=== PATIENT | male | born 1940 | race Caucasian/White ===

== ENCOUNTER 2022-07-22 16:54 | Inpatient (IN) | payer MEDICARE, OTHER ==
[~2022-07-22] VITALS: Ht 177.8 cm; Wt 81.8 kg
[2022-07-22 17:35] LABS: Basophils # (auto) 0 10 ^3/uL (0-0.2); Basophils % (auto) 0.3 % (0.0-2.0); Eosinophils # (auto) 0 10 ^3/uL (0-0.8); Eosinophils % (auto) 0.1 % (0.0-7.0); Hematocrit 47.1 % (36.0-46.0); Hemoglobin 15.9 g/dL (12.2-16.2); Lymphocytes # (auto) 0.6 10 ^3/uL (0.4-5.4); Lymphocytes % (auto) 4.5 % (10.0-50.0); Mean Corpuscular Hemoglobin 32.3 pg (28.0-32.0); Mean Corpuscular Hgb Conc. 33.8 g/dL (32.0-36.0); Mean Corpuscular Volume 95.5 fL (80.0-100.0); Monocytes # (auto) 0.6 10 ^3/uL (0-1.3); Monocytes % (auto) 4.3 % (0.0-12.0); Neutrophils % (auto) 90.8 % (37.0-80.0); Nucleated Red Blood Cells % 0.1 %; Red Blood Cells 4.93 10^6/uL (4.0-5.20); Red Cell Distribution Width 14.3 % (11.8-14.3); White Blood Cell 13.2 10^3/uL (4.4-10.8)
[2022-07-22 17:58] LABS: Albumin 3.5 g/dL (3.4-5.0); Potassium 3.9 mmol/L (3.5-5.1)
[2022-07-22 18:03] LABS: BUN/Creatinine Ratio 9.8 (10.0-20.0); Bilirubin, Total 0.8 mg/dL (0.2-1.0); Total Protein 6.6 g/dL (6.4-8.2)
[2022-07-22 18:59] LABS: Urine Bacteria NONE SEEN /hpf (None Seen); Urine Blood Negative /uL (Negative); Urine Specific Gravity 1.018 (1.001-1.035); Urine WBC <1 /hpf (0 - 5)
[2022-07-22] MEDS ORDERED: VANCOMYCIN 1GM/250ML 250 ML IV ONE (21:00)
[2022-07-22] MEDS ORDERED: LACTATED RINGER'S 1,000 ML IV ONE (21:00)
[2022-07-22] MEDS ORDERED: PIPERACILLIN-TAZOB 3.375GM 100 ML IV ONE (21:00)
[2022-07-22] MEDS ORDERED: IOHEXOL 300 MG/ML 100ML BOTTLE IJ ONE (21:28)
[2022-07-23] MEDS ORDERED: HYDROcodone-ACET 5/325MG TAB PO PRN (06:15)
[2022-07-23] MEDS ORDERED: ACETAMINOPHEN 325 MG TAB PO PRN (06:15)
[2022-07-23] MEDS ORDERED: DOCUSATE SOD 100 MG CAP PO PRN (06:15)
[2022-07-23] MEDS ORDERED: SODIUM CHLORIDE 0.9% 1,000 ML IV SCH (06:15)
[2022-07-23] MEDS ORDERED: ONDANSETRON HCL 4 MG/2 ML VIAL IV PRN (06:15)
[2022-07-23 07:11] LABS: Albumin 3.3 g/dL (3.4-5.0); BUN/Creatinine Ratio 9.5 (10.0-20.0); Basophils # (auto) 0 10 ^3/uL (0-0.2); Basophils % (auto) 0.1 % (0.0-2.0); Calcium 8.9 mg/dL (8.5-10.1); Eosinophils # (auto) 0 10 ^3/uL (0-0.8); Hematocrit 43.7 % (41.0-53.0); Hemoglobin 14.8 g/dL (13.5-17.5); Lymphocytes # (auto) 1.1 10 ^3/uL (0.4-5.4); Lymphocytes % (auto) 9.5 % (10.0-50.0); Mean Corpuscular Hemoglobin 32.4 pg (28.0-32.0); Mean Corpuscular Hgb Conc. 33.9 g/dL (32.0-36.0); Mean Corpuscular Volume 95.6 fL (80.0-100.0); Monocytes # (auto) 0.8 10 ^3/uL (0-1.3); Monocytes % (auto) 6.9 % (0.0-12.0); Neutrophils # (auto) 9.7 10 ^3/uL (1.6-8.6); Neutrophils % (auto) 83.5 % (37.0-80.0); Potassium 3.6 mmol/L (3.5-5.1); Red Blood Cells 4.58 10^6/uL (4.5-5.90); Red Cell Distribution Width 14.2 % (11.8-14.3); White Blood Cell 11.6 10^3/uL (4.4-10.8)
[2022-07-23 07:14] LABS: Bilirubin, Total 0.9 mg/dL (0.2-1.0); Total Protein 6.7 g/dL (6.4-8.2)
[2022-07-23] MEDS ORDERED: MORPHINE SULFATE INJ 2 MG/ml SYRG IV PRN (07:30)
[2022-07-23] MEDS ORDERED: NITROGLYCERIN 0.4 MG SL TAB SL PRN (07:30)
[2022-07-23] MEDS: cefTRIAXone 1GM/50ML D5W 50 ML IV SCH (10:01)
[2022-07-23] MEDS: ASPirin 81 mg TAB PO SCH (10:01)
[2022-07-23] MEDS ORDERED: DEXTROSE (50%) 50ML SYRG IV PRN (13:00)
[2022-07-23] MEDS: SODIUM CHLORIDE 0.9% 1,000 ML IV SCH ×2 (13:24→23:27)
[2022-07-23] MEDS: ACCU-CHEK COMFORT CURVE STRIP VI SCH ×2 (17:38→22:07)
[2022-07-23] MEDS: InsuLIN REG 1unit/0.01ml Soln (100units/ml) SC SCH ×2 (17:38→22:06)
[2022-07-23] MEDS ORDERED: LORazepam 2MG/ML-1ML VIAL IV PRN (19:00)
[2022-07-23] MEDS ORDERED: ATORVASTATIN 20 MG TAB PO SCH (22:00)
[2022-07-24 05:30] LABS: Urine Bacteria NONE SEEN /hpf (None Seen); Urine Blood Negative /uL (Negative); Urine Specific Gravity 1.011 (1.001-1.035); Urine WBC 1 /hpf (0 - 3)
[2022-07-24 05:41] LABS: Alcohol, Urine < 3.0 mg/dL (0-10); Amphetamine Screen, Urine NEGATIVE (NEGATIVE); Barbiturate Scree,Urine NEGATIVE (NEGATIVE); Benzodiazephine Screen, Urine NEGATIVE (NEGATIVE); Cannabinoid Screen, Urine NEGATIVE (NEGATIVE); Cocaine Screen, Urine NEGATIVE (NEGATIVE); Creatinine, Urine 72 mg/dL (30.0-125.0); Opiate Scree,Urine NEGATIVE (NEGATIVE); Phencyclidine Screen, Urine NEGATIVE (NEGATIVE); Protein, Urine 35.4 mg/dL (0.0-11.9); Sodium Urine 43 mmol/L (40-220)
[2022-07-24 06:41] LABS: Basophils # (auto) 0 10 ^3/uL (0-0.2); Basophils % (auto) 0.4 % (0.0-2.0); Eosinophils # (auto) 0.1 10 ^3/uL (0-0.8); Eosinophils % (auto) 1.8 % (0.0-7.0); Hematocrit 43.7 % (41.0-53.0); Hemoglobin 14.6 g/dL (13.5-17.5); Lymphocytes # (auto) 1.3 10 ^3/uL (0.4-5.4); Lymphocytes % (auto) 16.6 % (10.0-50.0); Mean Corpuscular Hemoglobin 32.9 pg (28.0-32.0); Mean Corpuscular Hgb Conc. 33.4 g/dL (32.0-36.0); Mean Corpuscular Volume 98.6 fL (80.0-100.0); Monocytes % (auto) 12.7 % (0.0-12.0); Neutrophils # (auto) 5.5 10 ^3/uL (1.6-8.6); Neutrophils % (auto) 68.5 % (37.0-80.0); Nucleated Red Blood Cells % 0.1 %; Red Blood Cells 4.43 10^6/uL (4.5-5.90); Red Cell Distribution Width 14.6 % (11.8-14.3)
[2022-07-24] MEDS: ACCU-CHEK COMFORT CURVE STRIP VI SCH ×2 (06:51→11:34)
[2022-07-24] MEDS: InsuLIN REG 1unit/0.01ml Soln (100units/ml) SC SCH ×2 (06:51→11:30)
[2022-07-24 06:52] LABS: Albumin 2.9 g/dL (3.4-5.0); Calcium 8.9 mg/dL (8.5-10.1); Potassium 3.7 mmol/L (3.5-5.1)
[2022-07-24 06:54] LABS: BUN/Creatinine Ratio 12.5 (10.0-20.0)
[2022-07-24 06:57] LABS: Bilirubin, Total 0.5 mg/dL (0.2-1.0); Total Protein 6.3 g/dL (6.4-8.2)
[2022-07-24 07:03] LABS: Uric Acid 3.7 mg/dL (3.5-7.2)
[2022-07-24] MEDS: SODIUM CHLORIDE 0.9% 1,000 ML IV SCH (09:00)
[2022-07-24] MEDS: cefTRIAXone 1GM/50ML D5W 50 ML IV SCH (11:25)
[2022-07-24] MEDS: ASPirin 81 mg TAB PO SCH (11:25)
[2022-07-24] MEDS ORDERED: AMOX500T86 PO (11:39)
[2022-07-24 14:00] VITALS: BP 140/76
[2022-07-24 14:31] LABS: Folate (Folic Acid) 14.17 ng/mL (5.38-24)
[2022-07-25 08:07] LABS: RPR Non Reactive (Non Reactive)
== END 2022-07-24 16:25 | disposition home or self-care (01) | DRG 157 ==
LOC: EDBD 16:54 → ER 16:54 → EDSEX 16:54 → OVERFLOW 07-23 07:22
PROVIDERS: ADMIT Nurse Practitioner Family; ATTEND Hospitalist
PROC: 4A00X4Z Measurement of Central Nervous Electrical Activity, External Approach (ICD-10-PCS; principal; 2022-07-24)
DX: K08.89 Other specified disorders of teeth and supporting structures (principal); G93.41 Metabolic encephalopathy; N17.0 Acute kidney failure with tubular necrosis; E87.1 Hypo-osmolality and hyponatremia; E11.22 Type 2 diabetes mellitus with diabetic chronic kidney disease; I12.9 Hypertensive chronic kidney disease with stage 1 through stage 4 chronic kidney disease, or unspecified chronic kidney disease; N18.9 Chronic kidney disease, unspecified; Z85.46 Personal history of malignant neoplasm of prostate; R50.9 Fever, unspecified
CPT/HCPCS: 36415; 70450; 70487; 70551; 71045; 76775; 80053; 80307; 81001; 82306; 82570; 82607; 82746; 82962; 84100; 84156; 84300; 84443; 84484; 84550; 85025; 86592; 87040; 87077; 87186; 95819; 96365; 96367; 97163; J0696; J1815; J2543